=== PATIENT | female | born 1965 | race Asian ===

== ENCOUNTER → 2016-06-14 | Outpatient (CLI) | payer BC, OTHER ==
[~2016-06-14] MED LIST: ACET-1311 PO; CLC150 PO; IBUP-1050 PO; LCTX PO; PRENTAB26 PO; TPZ5 PO; Vitamin B 12 PO
--- NOTE | 2016-06-15 12:37 | MAMMOGRAPHY REPORT ---
BILATERAL DIGITAL SCREENING MAMMOGRAM TOMOSYNTHESIS WITH CAD: 06/14/2016 CLINICAL HISTORY: Routine screening. Patient has no complaints. TECHNIQUE: Breast tomosynthesis in addition to standard 2D mammography was performed. Current study was also evaluated with a Computer Aided Detection (CAD) system. COMPARISON: Comparison is made to exam dated: 08/21/2011 mammogram - [facility]. BREAST COMPOSITION: The tissue of both breasts is extremely dense, which lowers the sensitivity of mammography. FINDINGS: There is a dense angular 7 mm asymmetry in the inferior posterior right breast, only seen on the MLO view. This finding is equivocal on the tomosynthesis images and further evaluation with spot compression tomosynthesis HD views and possibly ultrasound are recommended. No other suspicious mass, architectural distortion or cluster of microcalcifications is seen. IMPRESSION: ACR BI-RADS CATEGORY 0: INCOMPLETE EVALUATION: NEED ADDITIONAL IMAGING EVALUATION The 7 mm angular dense asymmetry in the right breast needs additional evaluation. The patient will be called to schedule an appointment. Approximately 10% of breast cancers are not detected with mammography. A negative mammographic repor t should not delay biopsy if a clinically suggestive mass is present. Mitzi Ortiz M.D. ay/:06/14/2016 22:00:33 Fiscal Specialist: Camille AKINS(Felipa)(Catracho), [facility] letter sent: Addl Imaging 0 BI-RADS Code: ACR BI-RADS Category 0: Incomplete Evaluation: Need Additional Imaging Evaluation
== END | disposition home or self-care (01) ==
LOC: C.MAMM 10:26
PROVIDERS: ATTEND Family Medicine
DX: Z12.31 Encounter for screening mammogram for malignant neoplasm of breast (principal); N64.9 Disorder of breast, unspecified

== ENCOUNTER → 2016-07-12 | Outpatient (CLI) | payer BC, OTHER ==
--- NOTE | 2016-07-12 12:39 | MAMMOGRAPHY REPORT ---
UNILATERAL RIGHT DIGITAL DIAGNOSTIC MAMMOGRAM TOMOSYNTHESIS AND TARGETED RIGHT ULTRASOUND: 07/12/2016 CLINICAL HISTORY: 50-year-old woman called back from screening mammography for angular asymmetry in the inferior posterior right breast, only seen on the MLO view. TECHNIQUE: Spot compression tomosynthesis right MLO views were obtained. COMPARISON: Comparison is made to exams dated: 06/14/2016 mammogram and 08/21/2011 mammogram - [facility]. BREAST COMPOSITION: The tissue of the right breast is extremely dense, which lowers the sensitivity of mammography. FINDINGS: The additional spot compression tomosynthesis views demonstrate near complete effacement o f the angular asymmetry in the inferior and posterior right breast, only seen on the MLO view. Ther e is no definite persisting architectural distortion or clustered calcification. Further evaluation with ultrasound was performed. Targeted ultrasound was performed out the inferior right breast including the retroareolar breast. Normal dense fibroglandular tissue is seen without a discrete solid or cystic mass. IMPRESSION: ACR-BI-RADS CATEGORY 3: PROBABLY BENIGN, TARGETED ULTRASOUND ACR-BI-RADS CATEGORY 3: SD OBABLY BENIGN There is near complete effacement of the asymmetry in the inferior posterior right breast with addit ional supplemental tomosynthesis images, and no suspicious sonographic correlate. This most likely represented normal overlapping fibroglandular tissue, but a short interval follow-up right mammogram including tomosynthesis images and possible repeat ultrasound is recommended to ensure stability in 6 months. These results and recommendations were discussed with the patient with the help of a [employer] Worker at the time of the exam. Approximately 10% of breast cancers are not detected with mammography. A negative mammographic repor t should not delay biopsy if a clinically suggestive mass is present. Mitzi Ortiz M.D. ay/:07/12/2016 12:12:50 Global Marketing Operations Manager: Camille AKINS(Felipa)(Catracho), [facility] letter sent: Follow Up Recommended 3 BI-RADS Code: ACR-BI-RADS Category 3: Probably Benign Ultrasound BI-RADS: ACR-BI-RADS Category 3: P robably Benign
== END | disposition home or self-care (01) ==
LOC: C.MAMM 11:12
PROVIDERS: ATTEND Family Medicine
DX: N64.89 Other specified disorders of breast (principal)